=== PATIENT | female | born 1965 | race Caucasian/White ===

== ENCOUNTER 2017-04-18 09:29 | Emergency (ER) | payer OTHER ==
[2017-04-18 09:44] VITALS: BP 145/97
--- NOTE | 2017-04-18 10:36 | XRAY Preliminary Report ---
Exam: XR Foot 3 View RT IMPRESSION: 1. Mild soft tissue swelling in fifth toe. Faint cortical step-off and lucency in distal metaphysis o f proximal phalanx of fifth toe on oblique view. No dislocation seen. No abnormal periosteal reaction . Nondisplaced distal metaphyseal fracture is not excluded. 2. Plantar calcaneal spur. [facility] SITE ID: [id number]
--- NOTE | 2017-04-18 10:38 | XRAY Report ---
EXAM: RIGHT FOOT RADIOGRAPHY EXAM DATE: 04/18/2017 10:05 AM. CLINICAL HISTORY: Pain at 5th toe. Injury 2 weeks ago COMPARISON: None. TECHNIQUE: 3 views. FINDINGS: Bones: Plantar calcaneal spur. Faint cortical step-off and lucency in lateral aspect of distal metaph ysis of proximal phalanx of fifth toe on oblique view. No dislocation seen. No abnormal periosteal re action. No other fractures or bone lesions. Joints: Normal. No subluxations. Soft Tissues: Mild fifth toe soft tissue swelling. No other soft tissue swelling. IMPRESSION: 1. Mild soft tissue swelling in fifth toe. Faint cortical step-off and lucency in distal metaphysis o f proximal phalanx of fifth toe on oblique view. No dislocation seen. No abnormal periosteal reaction . Nondisplaced distal metaphyseal fracture is not excluded. 2. Plantar calcaneal spur. [facility] Referring Provider Line: [phone] SITE ID: [id number]
--- NOTE | 2017-04-18 10:49 | ED Physician Documentation ---
PD HPI LOWER EXT INJURY - Stated complaint Stated Complaint: R SMALL TOE INJURY - Chief complaint Chief Complaint: Ext Problem - History obtained from History obtained from: Patient - History of Present Illness PD HPI LOW EXT INJURY LOCATION: Right, Toe (5th) Type of injury: Blunt / blow Where injury occurred: Home Timing - onset: How many weeks ago (2) Timing - duration: Weeks (2) Timing - details: Abrupt onset, Still present Improved by: Rest, Immobilization Worsened by: Moving, Palpating Associated symptoms: Swelling, Discolored Contributing factors: No: Anticoagulated Similar symptoms before: Has not had sx before Recently seen: Not recently seen - Additional information Additional information: 51-year-old female got up in the middle of the night to 10 to her puppy and stubbed her right fifth toe. This happened about 2 weeks ago and she is continued to have pain and swelling to the area. Review of Systems Constitutional: denies: Fever Respiratory: denies: Cough GI: denies: Vomiting Musculoskeletal: reports: Extremity pain, Joint pain, Joint swelling, Pain with weight bearing. denies: Neck pain, Back pain Neurologic: denies: Generalized weakness, Focal weakness, Numbness PD ED PE NORMAL - Vitals Vital signs reviewed: Yes (Tachycardic and hypertensive) - General General: No acute distress, Well developed/nourished - HEENT HEENT: Atraumatic, PERRL, EOMI - Respiratory Respiratory: No respiratory distress - Derm Derm: Normal color, Warm and dry, No rash - Extremities Extremities: No deformity, Other (There is swelling and tenderness to the fifth toe on the right foot especially to the lateral aspect over the proximal phalange. The proximal fifth is without tenderness and the remainder of the foot is without tenderness or swelling.) - Neuro Neuro: No motor deficit, No sensory deficit - Psych Psych: Normal mood, Normal affect Results - Vitals Vitals: Vital Signs - 24 hr 04/18/17 09:40 Temperature 36.5 C Heart Rate 106 H Respiratory 16 Rate Blood Pressure 145/97 H O2 Saturation 99 Oxygen O2 Source Room air - Rads (name of study) Right foot Radiology: Prelim report reviewed (Impression: 1. Mild soft tissue swelling in fifth toe. Faint cortical step-off and lucency in the distal metaphysis of proximal phalanx of fifth toe on oblique view. No dislocation seen. No abnormal periosteal reaction. Nondisplaced distal metaphyseal fracture not excluded.2. Plantar calcaneal spur.), EMP read indepedently, See rad report PD MEDICAL DECISION MAKING - ED course Complexity details: reviewed results, re-evaluated patient, considered differential, d/w patient ED course: 51-year-old female stubbed her toe 2 weeks ago continues to have pain and swelling and on x-ray exam today it does appear she has a nondisplaced fracture of the distal portion of the proximal phalanx on the fifth toe. She is given a metatarsal padding to a postop shoe. Departure - Departure Disposition: 01 Home, Self Care Clinical Impression: Toe fracture, right Qualifiers: Encounter type: initial encounter Toe: lesser toe Fracture type: closed Phalanx : proximal Fracture alignment: nondisplaced Qualified Code(s): S92.514A - Nondisplaced fracture of proximal phalanx of right lesser toe(s), initial encounter for closed fracture Instructions: ED Fx Toe Closed Follow-Up: SWATHI EDWARDS [Primary Care Provider] -
== END 2017-04-18 11:10 | disposition home or self-care (01) ==
LOC: ED 09:29
DX: S92.514A Nondisplaced fracture of proximal phalanx of right lesser toe(s), initial encounter for closed fracture (principal); W22.8XXA Striking against or struck by other objects, initial encounter; Y92.029 Unspecified place in mobile home as the place of occurrence of the external cause
CPT/HCPCS: 99283

== ENCOUNTER 2017-07-28 11:13 | Outpatient (CLI) | payer OTHER | END 2017-07-28 11:14 | disposition home or self-care (01) | LOC: DI 11:13 | PROVIDERS: ATTEND Nurse Practitioner Family | DX: R01.1 Cardiac murmur, unspecified (principal); K21.9 Gastro-esophageal reflux disease without esophagitis; J30.9 Allergic rhinitis, unspecified; I10 Essential (primary) hypertension; J45.909 Unspecified asthma, uncomplicated; M79.674 Pain in right toe(s) | CPT/HCPCS: 93306 ==

== ENCOUNTER 2018-04-14 17:08 | Emergency (ER) | payer OTHER ==
[2018-04-14] MEDS ORDERED: traMADol 50 MG TABLET PO STA (17:28)
[2018-04-14] MEDS: NAPROXEN 250 MG TABLET PO STA ×2 (17:42→17:47)
--- NOTE | 2018-04-14 18:08 | ED Physician Documentation ---
PD HPI LOWER EXT INJURY - Stated complaint Stated Complaint: RT KNEE VS running DOG - Chief complaint Chief Complaint: Ext Problem - History obtained from History obtained from: Patient - History of Present Illness PD HPI LOW EXT INJURY LOCATION: Right, Knee, Lower leg Type of injury: Blunt / blow (her 50 lb dog was running fast after a ball and ran directly into her anterolateral proximal lower leg. She got knocked over. Not clear if what twisting of the knee. Pain with walking. Had bruise and swelling proximal lower leg. Has swelling and feeling of unreliability of her knee. Has store wrap on knee.) Where injury occurred: Home Timing - onset: Last night Timing - details: Abrupt onset, Still present Worsened by: Moving, Palpating, Other (walking feels like her knee is going to give out backwards, per patient.) Associated symptoms: Swelling, Discolored (bruising of proximal lower leg). No : Weakness, Numbness Contributing factors: No: Anticoagulated, Prior ortho surgery Similar symptoms before: Has not had sx before Recently seen: Not recently seen Review of Systems Skin: denies: Abrasion (s), Laceration (s) Neurologic: denies: Focal weakness, Numbness PD PAST MEDICAL HISTORY - Past Medical History Past Medical History: Yes Respiratory: Asthma - Past Surgical History Past Surgical History: Yes General: Other - Present Medications Home Medications: Ambulatory Orders Medication Instructions Recorded Confirmed Estrogens, Conjugated [Premarin] 04/14/18 Fluticasone 44 Mcg [Flovent] 04/14/18 Fluticasone/Salmeterol [Advair 04/14/18 100-50 Diskus] Nifedipine [Adalat cc] 04/14/18 Omeprazole 04/14/18 Tramadol HCl 50 mg PO Q6H PRN #20 tablet 04/14/18 - Allergies Allergies/Adverse Reactions: Allergies Allergy/AdvReac Type Severity Reaction Status Date / Time codeine Allergy Rash Verified 04/14/18 17:38 ibuprofen Allergy Rash Verified 04/14/18 17:38 - Social History Does the pt smoke?: Yes Smoking Status: Current every day smoker Does the pt drink ETOH?: Yes Does the pt have substance abuse?: No PD ED PE NORMAL - Vitals Vital signs reviewed: Yes - General General: Alert and oriented X 3, No acute distress, Well developed/nourished - Back Back: No spinal TTP - Derm Derm: Normal color, Warm and dry - Extremities Extremities: Other (The knee has a mild effusion. There is no gross laxity with cruciate or collateral stress testing. She does have some pain with valgus stress along the medial aspect. The proximal third anterolateral lower leg shows some bruising and tenderness. Distal lower leg is nontender and the ankle is without any tenderness nor effusion. She has good color and capillary refill in the toes and good pulses at the ankle.) - Neuro Neuro: No motor deficit, No sensory deficit Results - Vitals Vitals: Oxygen O2 Source Room air - Rads (name of study) right knee/tib-fib Radiology: Prelim report reviewed (no fractures seen), EMP read contemporaneously PD MEDICAL DECISION MAKING - ED course Complexity details: considered differential (She has bruising direct impact which will be hurting in the muscles and may be accounting for her pain with walking. The knee has some effusion to it but no gross laxity on stress testing. Presume some straining of the ligaments in there. We will give her a knee brace to be using. Crutches if needed. She is sensitive to NSAIDs and states she does not like to take Tylenol and is allergic to codeine. Will prescribe tramadol to use for her. Follow-up with primary care or orthopedics.) , d/w patient - Sepsis Event Vital Signs: Oxygen O2 Source Room air Departure - Departure Disposition: 01 Home, Self Care Clinical Impression: Knee strain Qualifiers: Encounter type: initial encounter Laterality: right Qualified Code(s): S86.911A - Strain of unspecified muscle(s) and tendon(s) at lower leg level, right leg, initial encounter Contusion, lower leg Qualifiers: Encounter type: initial encounter Laterality: right Qualified Code(s): S80.11XA - Contusion of right lower leg, initial encounter Condition: Stable Record reviewed to determine appropriate education?: Yes Instructions: ED Contusion Lower Ext, ED Sprain Knee Follow-Up: SWATHI EDWARDS [Primary Care Provider] - Prescriptions: Tramadol HCl 50 mg PO Q6H PRN #20 tablet PRN Reason: Pain Comments: There are no fractures on x-ray. There is the obvious bruising of the lower leg which will be sore for several days to week. You can use ice and Reyes wrap on this area to reduce swelling. There is some swelling in the knee joint to and likely there is some strain of the ligaments as you are lower leg hit. The knee brace will help with this. Use a knee brace when up and around for the next week. You can have it off when resting. Follow-up with your primary care in about a week, call for an appointment. At that point they can retest the knee ligaments clinically to see that it is doing okay. Discharge Date/Time: 04/14/18 18:36
--- NOTE | 2018-04-14 18:22 | XRAY Report ---
Reason: struck by running dog/ pain in mid tib/fib Procedure Date: 04/14/2018 Accession Number: [id number] / [id number] Procedure: XR - Tib/Fib RT CPT Code: FULL RESULT: EXAM: RIGHT TIBIA/FIBULA RADIOGRAPHY EXAM DATE: 04/14/2018 06:06 PM. CLINICAL HISTORY: Right leg pain. COMPARISON: None. TECHNIQUE: 2 views. FINDINGS: Bones: Normal. No fracture or bone lesion. Joints: The visualized knee and ankle joints are normal. No effusions. Soft Tissues: Normal. No soft tissue swelling. IMPRESSION: Normal tibia/fibula radiography. [facility]
--- NOTE | 2018-04-14 18:24 | XRAY Report ---
Reason: struck by running dog/ pain in knee and tib/fib Procedure Date: 04/14/2018 Accession Number: [id number] / [id number] Procedure: XR - Knee 3 View RT CPT Code: FULL RESULT: EXAM: RIGHT KNEE RADIOGRAPHY EXAM DATE: 04/14/2018 06:06 PM. CLINICAL HISTORY: Right knee pain. COMPARISON: None. TECHNIQUE: 3 views. FINDINGS: Bones: Normal. No fractures or bone lesions. Joints: Minor degenerative changes are seen in the patellofemoral joint. Soft Tissues: Normal. No soft tissue swelling. IMPRESSION: No acute findings. [facility]
[2018-04-14 18:39] VITALS: BP 121/73
== END 2018-04-14 18:36 | disposition home or self-care (01) ==
LOC: ED 17:08
DX: S86.911A Strain of unspecified muscle(s) and tendon(s) at lower leg level, right leg, initial encounter (principal); S80.11XA Contusion of right lower leg, initial encounter; W54.8XXA Other contact with dog, initial encounter; Y92.009 Unspecified place in unspecified non-institutional (private) residence as the place of occurrence of the external cause; F17.200 Nicotine dependence, unspecified, uncomplicated
CPT/HCPCS: 73562; 73590; 99283; A9270

== ENCOUNTER 2019-05-05 16:35 | Emergency (ER) | payer OTHER ==
[2019-05-05 17:12] LABS: BASOPHILS # (AUTO) 0.1 10^3/uL (0.0-0.1); BASOPHILS % (AUTO) 0.7 %; EOSINOPHILS # (AUTO) 0.1 10^3/uL (0.0-0.7); EOSINOPHILS % (AUTO) 0.5 %; LYMPHOCYTES # (AUTO) 2.4 10^3/uL (1.5-3.5); LYMPHOCYTES % (AUTO) 24.7 %; MEAN CORPUSCULAR HEMOGLOBIN 29.9 pg (27.0-31.0); MEAN CORPUSCULAR HGB CONC 32.6 g/dL (32.0-36.0); MEAN CORPUSCULAR VOLUME 91.9 fL (81.0-99.0); MEAN PLATELET VOLUME 8.4 fL (7.9-10.8); MONOCYTES # (AUTO) 0.7 10^3/uL (0.0-1.0); MONOCYTES % (AUTO) 6.7 %; NEUTROPHILS # (AUTO) 6.6 10^3/uL (1.5-6.6); PLT - PLATELET COUNT 323 10^3/uL (130-450); RED BLOOD COUNT 4.68 10^6/uL (4.20-5.40); RED CELL DISTRIBUTION WIDTH 14.1 % (12.0-15.0); WHITE BLOOD COUNT 9.8 x10^3/uL (4.8-10.8)
[2019-05-05 17:24] LABS: ALBUMIN/GLOBULIN RATIO 1.1 (1.0-2.2); BILIRUBIN,TOTAL 0.5 mg/dL (0.2-1.0); CALCIUM 9.4 mg/dL (8.5-10.3); CREATININE 0.7 mg/dL (0.4-1.0); TOTAL PROTEIN 7.7 g/dL (6.7-8.2)
--- NOTE | 2019-05-05 17:53 | ED Physician Documentation ---
PD HPI ABD PAIN - Stated complaint Stated Complaint: LT LOW ABD PX/NAUSEA - Chief complaint Chief Complaint: Abd Pain - History obtained from History obtained from: Patient - History of Present Illness Timing - onset: Today (54-year-old woman with history of endometriosis and multiple surgeries for same was bending over in the shower today to shave her legs and she felt a pop with moderate pain in the left lower quadrant. There is no associated constipation or nausea.) Review of Systems Constitutional: denies: Fever, Chills Respiratory: denies: Dyspnea, Cough GI: reports: Abdominal Pain. denies: Nausea, Vomiting, Constipation, Diarrhea, Hematemesis, Bloody / black stool : denies: Dysuria, Frequency PD PAST MEDICAL HISTORY - Past Medical History Respiratory: Asthma - Past Surgical History Past Surgical History: Yes General: Other - Present Medications Home Medications: Ambulatory Orders Medication Instructions Recorded Confirmed Estrogens, Conjugated [Premarin] 04/14/18 Fluticasone 44 Mcg [Flovent] 04/14/18 Fluticasone/Salmeterol [Advair 04/14/18 100-50 Diskus] Nifedipine [Adalat cc] 04/14/18 Omeprazole 04/14/18 Tramadol HCl 50 mg PO Q6H PRN #20 tablet 04/14/18 Amox/Clav 875/125 [Augmentin] 1 each PO Q12H #20 tablet 05/05/19 - Allergies Allergies/Adverse Reactions: Allergies Allergy/AdvReac Type Severity Reaction Status Date / Time codeine Allergy Rash Verified 05/05/19 16:39 ibuprofen Allergy Rash Verified 05/05/19 16:39 - Social History Does the pt smoke?: Yes Smoking Status: Current every day smoker Does the pt drink ETOH?: Yes Does the pt have substance abuse?: No PD ED PE NORMAL - Vitals Vital signs reviewed: Yes - General General: Alert and oriented X 3, No acute distress - HEENT HEENT: PERRL, EOMI - Abdomen Abdomen: Normal bowel sounds, Soft, Other (Mild tenderness and fullness in the left lower quadrant without obvious hernia.) - Back Back: No CVA TTP, No spinal TTP - Neuro Neuro: Alert and oriented X 3, Normal speech Results - Vitals Vitals: Vital Signs - 24 hr 05/05/19 05/05/19 16:39 18:27 Temperature 36.5 C Heart Rate 111 H 91 Respiratory 16 16 Rate Blood Pressure 144/90 H 140/82 H O2 Saturation 98 100 Oxygen O2 Source Room air - Labs Labs: Laboratory Tests 05/05/19 05/05/19 05/05/19 17:06 17:06 18:46 WBC 9.8 RBC 4.68 Hgb 14.0 Hct 43.0 MCV 91.9 MCH 29.9 MCHC 32.6 RDW 14.1 Plt Count 323 MPV 8.4 Neut # (Auto) 6.6 Lymph # (Auto) 2.4 [place] # (Auto) 0.7 Eos # (Auto) 0.1 Baso # (Auto) 0.1 Absolute Nucleated RBC 0.00 Nucleated RBC % 0.0 Sodium 141 Potassium 3.4 L Chloride 102 Carbon Dioxide 28 Anion Gap 11.0 BUN 6 Creatinine 0.7 Estimated GFR (MDRD) 87 L Glucose 108 H Calcium 9.4 Total Bilirubin 0.5 AST 26 ALT 19 Alkaline Phosphatase 104 Total Protein 7.7 Albumin 4.0 Globulin 3.7 Albumin/Globulin Ratio 1.1 Lipase 45 Urine Color YELLOW Urine Clarity CLEAR Urine pH 8.5 H Ur Specific [place] 1.010 Urine Protein NEGATIVE Urine Glucose (UA) NEGATIVE Urine Ketones NEGATIVE Urine Occult Blood NEGATIVE Urine Nitrite NEGATIVE Urine Bilirubin NEGATIVE Urine Urobilinogen 0.2 (NORMAL) Ur Leukocyte Esterase NEGATIVE Ur Microscopic Review NOT INDICATED Urine Culture Comments NOT INDICATED - Rads (name of study) CT A/P Radiology: EMP read contemporaneously (Colonic diverticulosis with potential diverticulitis. Left lower quadrant abdominal wall defect with fat, no bowel.) PD MEDICAL DECISION MAKING - ED course ED course: 54-year-old woman presents with concern for left lower quadrant hernia, she does have that and also potential diverticulitis. She is given antibiotics and referred to a surgeon. Departure - Departure Disposition: Home, Self Care Clinical Impression: Diverticulitis of gastrointestinal tract, Abdominal wall hernia Condition: Good Record reviewed to determine appropriate education?: Yes Instructions: ED Diverticulitis Follow-Up: Jean Aguilar MD [Provider Admit Priv/Credential] - Prescriptions: Amox/Clav 875/125 [Augmentin] 1 each PO Q12H #20 tablet Comments: You are correct that your CAT scan shows an abdominal wall hernia. There is no urgency to get it fixed. I am referring you to a surgeon. Return if worse. He also have evidence of diverticulitis which we are treating with antibiotics. R eturn if you worsen or develop a fever.
[2019-05-05] MEDS ORDERED: IOVERSOL 320 100 ML VIAL IVP ONE ×2 (18:07→18:22)
[2019-05-05 18:27] VITALS: BP 140/82
[2019-05-05 18:55] LABS: BILIRUBIN,URINE NEGATIVE (NEGATIVE); GLUCOSE, URINE (UA) NEGATIVE (NEGATIVE); KETONES,URINE (UA) NEGATIVE (NEGATIVE); LEUKOCYTE ESTERASE, URINE NEGATIVE (NEGATIVE); NITRITE,URINE NEGATIVE (NEGATIVE); OCCULT BLOOD,URINE NEGATIVE (NEGATIVE); PH,URINE 8.5 PH (5.0-7.5); PROTEIN,URINE NEGATIVE (NEGATIVE); UROBILINOGEN,URINE 0.2 (NORMAL) E.U./dL (NORMAL)
[2019-05-05 18:59] LABS: CLARITY,URINE CLEAR (CLEAR)
--- NOTE | 2019-05-05 19:27 | CT Report ---
Reason: LLQ pain Procedure Date: 05/05/2019 Accession Number: [id number] / [id number] Procedure: CT - Abdomen/Pelvis W CPT Code: FULL RESULT: EXAM: CT ABDOMEN AND PELVIS WITH IV CONTRAST EXAM DATE: 05/05/2019 06:23 PM. CLINICAL HISTORY: Left lower quadrant pain. COMPARISONS: None. TECHNIQUE: Routine helical CT imaging was performed through the abdomen and pelvis. IV contrast: Optiray 320, 90 mL. Enteric contrast: No. Reconstructions: Coronal and sagittal. In accordance with CT protocol optimization, one or more of the following dose reduction techniques were utilized for this exam: automated exposure control, adjustment of mA and/or KV based on patient size, or use of iterative reconstructive technique. FINDINGS: Lung Bases: No effusions. Liver: Fatty liver. Portal vein is patent. No mass or intrahepatic bile duct dilation. Gallbladder/Bile Ducts: Unremarkable. Spleen: Splenic calcifications without mass. Pancreas: Normal. Adrenal Glands: Normal. Kidneys: Normal. No masses or hydronephrosis. Peritoneal Cavity/Bowel: Normal. No free fluid, free air or adenopathy. No masses or acute inflammatory process. Diverticulosis with borderline sigmoid wall thickening and minimal adjacent stranding. No dilated large bowel. Normal-appearing stomach and small bowel. Left lower quadrant abdominal wall defect with herniation of fat best seen on image 3, 56. No incarcerated bowel. Pelvic Organs: Uterus is absent. Normal bladder. No ascites. No collection, pelvic mass or adenopathy. Vasculature: Patchy atheromatous plaques are present in the abdominal aorta and branch vessels. No aneurysm. Normal IVC. Bones: No significant abnormality. Other: None. IMPRESSION: 1. Colonic diverticulosis most severely affecting the sigmoid colon. Borderline sigmoid wall thickening with incomplete distention and associated minimal adjacent fat stranding. In the appropriate clinical circumstances, early acute diverticulitis is on the differential. No complications such as obstruction, perforation or abscess. Correlate with presentation and clinical studies. 2. Normal appendix. 3. Left lower quadrant abdominal wall defect with herniation of fat. No incarcerated bowel. [facility]
[2019-05-05] MEDS ORDERED: AMOX/CLAV 875 MG/125 MG TABLET PO STA (19:34)
== END 2019-05-05 19:50 | disposition home or self-care (01) ==
LOC: ED 16:35
DX: K57.32 Diverticulitis of large intestine without perforation or abscess without bleeding (principal); K43.9 Ventral hernia without obstruction or gangrene; F17.200 Nicotine dependence, unspecified, uncomplicated
CPT/HCPCS: 36415; 74177; 80053; 81003; 83690; 85025; 99283; 99284; A9270; Q9967; 81001; 87086